=== PATIENT | female | born 1950 | race Caucasian/White ===

== ENCOUNTER → 2017-11-22 | Outpatient (CLI) | payer MEDICARE, BC ==
[~2017-11-22] MED LIST: ASPIR 8181 MG PO
== END ==
LOC: M.ULTRA 14:24
DX: I87.2 Venous insufficiency (chronic) (peripheral) (principal)

== ENCOUNTER → 2020-07-29 | Outpatient (CLI) | payer MEDICARE, BC | LOC: M.ULTRA 12:42 | PROVIDERS: ATTEND Internal Medicine | DX: M25.462 Effusion, left knee (principal); M71.22 Synovial cyst of popliteal space [Baker], left knee ==

== ENCOUNTER → 2020-09-29 | Outpatient (CLI) | payer MEDICARE, BC ==
--- NOTE | 2020-09-29 15:06 | 2DMMODE ---
[place] [address] 2 D/M-MODE ECHOCARDIOGRAM Name: HARSH VAZQUEZ Room: [facility]#: [id number] Admission: 09/29/20 Attend Phys: Joellen Conti, Discharge: Date of : 48 Date of Service: 09/29/20 1506 Report #: [id number] THIS REPORT FOR: cc: Lisseth Velázquez MD, Lin W. MD Blick, David R. MD [facility] ~ APPROVED REPORT Study performed: 09/29/2020 12:43:19 EXAM: Comprehensive 2D, Doppler, and color-flow Echocardiogram Patient Location: Out-Patient BSA: 1.83 HR: 62 bpm BP: 117/67 mmHg Other Information Study Quality: Good Indications Palpitations Chest Pain 2D Dimensions IVSd: 12.09 (7-11mm) LVOT Diam: 19.24 (18-24mm) LVDd: 45.66 mm PWd: 10.87 (7-11mm) Ascending Ao: 34.04 (22-36mm) LVDs: 28.39 (25-40mm) Aortic Root: 28.04 mm Volumes Left Atrial Volume (Systole) LA ESV Index: 12.20 mL/m2 Aortic Valve AoV Peak Randall.: 1.52 m/s AO Peak Gr.: 9.26 mmHg LVOT Max P.67 mmHg AO Mean Gr.: 4.98 mmHg LVOT Mean P.35 mmHg LVOT Max V: 0.82 m/s AO V2 VTI: 33.19 cm LVOT Mean V: 0.53 m/s MANUEL (VTI): 1.82 cm2 LVOT V1 VTI: 20.84 [place] [address] 2 D/M-MODE ECHOCARDIOGRAM Name: HARSH VAZQUEZ Room: [facility]#: [id number] Admission: 09/29/20 Attend Phys: Joellen Conti, Discharge: Date of : 48 Date of Service: 09/29/20 1506 Report #: [id number] E/A Ratio: 0.67 MV Decel. Time: 294.22 ms MV E Max Randall.: 0.66 m/s MV PHT: 85.32 ms MVA (PHT): 2.58 cm2 TDI E/Lateral E': 8.25 E/Medial E': 8.25 Medial E' Randall.: 0.08 m/s Lateral E' Randall.: 0.08 m/s Pulmonary Valve PV Peak Randall.: 0.94 m/s PV Peak Gr.: 3.50 mmHg Tricuspid Valve RAP Estimate: 5.00 mmHg TR Peak Gr.: 21.65 mmHg RVSP: 26.65 mmHg PA Pressure: 26.65 mmHg Left Ventricle The left ventricle is normal size. There is normal LV segmental wall motion. There is normal left ventricular wall thickness. Left ventricular systolic function is normal. The left ventricular ejection fraction is within the normal range. LVEF is 55-60%. Grade I - abnormal relaxation pattern. Right Ventricle The right ventricle is normal size. The right ventricular systolic function is normal. Atria The left atrium size is normal. The right atrium size is normal. Aortic Valve The aortic valve is normal in structure. No aortic regurgitation is present. There is no aortic valvular stenosis. Mitral Valve The mitral valve is normal in structure. Trace mitral regurgitation. No evidence of mitral valve stenosis. Tricuspid Valve The tricuspid valve is normal in structure. Mild [place] [address] 2 D/M-MODE ECHOCARDIOGRAM Name: HARSH VAZQUEZ Room: [facility]#: [id number] Admission: 09/29/20 Attend Phys: Joellen Conti, Discharge: Date of : 48 Date of Service: 09/29/20 1506 Report #: [id number] Pulmonic Valve The pulmonary valve is normal in structure. There is no pulmonic valvular regurgitation. Great Vessels The aortic root is normal in size. IVC is normal in size and collapses >50% with inspiration. Pericardium There is no pericardial effusion. <Conclusion> Left ventricular systolic function is normal. The left ventricular ejection fraction is within the normal range. <ELECTRONICALLY SIGNED> By: Armand Jones MD, [facility] 09/29/20 1506 1506 1506 Armand Jones MD, FACC /INF
--- NOTE | 2020-09-29 17:21 | CARDNUC ---
[place] [address] CARDIAC NUCLEAR IMAGING REPORT Name: TAYLORHARSH George Room: [facility]#: [id number] Admission: 09/29/20 Attend Phys: Joellen Conti, Discharge: Date of : 48 Date of Service: 09/29/20 1721 Report #: [id number] THIS REPORT FOR: cc: Lisseth Velázquez MD, Lin W. MD Liston, Michael J. MD [facility] ~ APPROVED REPORT Study performed: 09/29/2020 15:40:06 Exam: Nuclear Stress Test Indication: Chest pain, ABN EKG, Palpitations. Patient Location: Out-Patient Stress Tech: Dania Ott Stress Nurse: Justine Proctor R.N. NM Tech:PRISCILA Clifford Ht: 5 ft 4 in Wt: 163 lbs BSA: 1.79 m2 BMI: 27.97 Medical History Medical History: Chest pain, ABN EKG, Palpitations, SB, IVCD, Catherization, Superficial venous thrombosis, Knee pain/Limping. Medications: No cardiac medications. Allergies: Hydromorphone, Darvocet, Amoxicillin, Propoxyphene. Cardiac Risk Factors: Age, FHX of CAD, ABN EKG, Palpitations, SB, IVCD, past catherization. Previous Cardiac Procedures: Catherization 2009. Pretest Chest Pain Characteristics: No chest pain Exercise History: Indeterminate Physical Disabilities: Knee pain, limping. Patient refuses treadmill d/t knee pain. Meds Held (24 hrs): None Stress Test Details Stress Test: Pharmacologic stress testing performed using 0.4 mg of regadenoson per 5 mL given IV over 10 seconds. Reason for pharmacologic stress test: Knee pain, limping. Patient refuses treadmill d/t knee pain.. Reversal agent Aminophyline mg, given intravenously for patient refused [place] [address] CARDIAC NUCLEAR IMAGING REPORT Name: HARSH VAZQUEZ Room: [facility]#: [id number] Admission: 09/29/20 Attend Phys: Joellen Conti, Discharge: Date of : 48 Date of Service: 09/29/20 1721 Report #: [id number] Resting HR: 57 bpm Max Heart Rate (APMHR): 150 bpm Max HR Achieved: 115 bpm Target HR (85% APMHR): 127 bpm % of APMHR: 76 Recovery HR: 79 bpm BP Resting BP: 127/70 mmHg Max BP: 135/69 mmHg ECG Resting ECG: Sinus Rhythm, LBBB Stress ECG: Sinus tachycardia, LBBB ST Change: None Arrhythmia: None Recovery ECG: Sinus Rhythm, LBBB Recovery ST Change: None Recovery Arrhythmia: None Clinical Reason for Termination: Completed protocol Stress Symptoms: Lightheaded, stomach discomfort, tingling in hands. Exercise duration: 00 min 00 sec Exercise capacity: 1.00 METs The patient had no significant cardiac symptoms with Lexiscan infusion. Nurse Comments A 69 year old female presented for a Treadmill Nuclear Stress Test but refused treadmill d/t painful knee causing a limp. Lexiscan test tolerated. Recovery unremarkable. Patient was stable and stated she felt good when escorted to Nuclear Medicine for imaging. Stress ECG Conclusion The baseline twelve-lead EKG shows sinus rhythm with left bundle branch block. EKGs obtained during and post Lexiscan infusion show sinus rhythm and sinus tachycardia with left bundle branch block. No acute changes noted. There were no stress-induced arrhythmias. NM EXAM: Myocardial Perfusion REST/STRESS Imaging Protocol: Rest Tc-99m/Stress Tc-99m 1 day Resting Data Rest SPECT myocardial perfusion imaging was performed in supine position 30 minutes following the intravenous injection of 11.9 mCi of Tc-99m [place] [address] CARDIAC NUCLEAR IMAGING REPORT Name: HARSH VAZQUEZ Room: [facility]#: [id number] Admission: 09/29/20 Attend Phys: Joellen Conti, Discharge: Date of : 48 Date of Service: 09/29/20 1721 Report #: [id number] Time of rest injection: 1350 Date: 09/29/2020 The images were gated to evaluate regional wall motion and calculate left ventricular ejection fraction. Administration Route: IV Administration Site: Right AC Pharmacologic Stress Pharmacologic stress test was performed by injecting Regadenoson 0.4 mg IV push followed by the intravenous injection of 34.7 mCi of Tc-99m Sestamibi. Time of stress injection: 1530 Date: 09/29/2020 Administration Route: IV Administration Site: Right AC Gated Stress SPECT was performed 40 minutes after stress injection. The images were gated to evaluate regional wall motion and calculate left ventricular ejection fraction. Prone imaging was performed. Study Quality Study: Fair Artifact: Moderate Diaphragmatic artifact Study Data At rest, the left ventricular ejection fraction was 71%.. Post stress, the left ventricular ejection was 79%.. TID = 0.82. Perfusion Perfusion images show significant diaphragmatic attenuation artifact even in prone imaging post-rest. Wall motion in this region appears normal on gated studies. There is focal photopenia at the apex that resolves for the most part with post stress imaging suggesting apical thinning artifact. No reversible defects are identified. Wall Motion Normal left ventricular wall motion. Nuclear Conclusion ECG Findings: non-diagnostic Clinical Findings: negative for ischemia Nuclear Findings: negative for ischemia Exercise Capacity: not assessed Left Ventricular Function: Grossly normal Perfusion study show no defect to suggest ischemia. Global LV systolic function is normal without obvious [place] [address] CARDIAC NUCLEAR IMAGING REPORT Name: HARSH VAZQUEZ Room: [facility] Funmi#: [id number] Admission: 09/29/20 Attend Phys: Joellen Conti, Discharge: Date of : 48 Date of Service: 09/29/20 1721 Report #: [id number] Inferior wall somewhat difficult to evaluate due to diaphragmatic attenuation artifact. This is not a high risk study. <Conclusion> The baseline twelve-lead EKG shows sinus rhythm with left bundle branch block. EKGs obtained during and post Lexiscan infusion show sinus rhythm and sinus tachycardia with left bundle branch block. No acute changes noted. There were no stress-induced arrhythmias. <ELECTRONICALLY SIGNED> By: Addi Min MD, FACC 09/29/201720 20 20 Addi Min MD, FACC /INF
== END ==
LOC: M.CRD 09-11 14:55
PROVIDERS: ATTEND Internal Medicine
DX: I07.1 Rheumatic tricuspid insufficiency (principal); R94.31 Abnormal electrocardiogram [ECG] [EKG]